=== PATIENT | female | born 1950 | race Caucasian/White ===

== ENCOUNTER 2023-11-28 15:41 | Emergency (ER) | payer OTHER ==
[2023-11-28] VITALS (8 sets, daily range): BP systolic 130; BP diastolic 45; PULSE 86–161; RESP 20–26; TEMP 98.5; O2SAT 99
[~2023-11-28] VITALS: Ht 172.7 cm; Wt 80.0 kg
[~2023-11-28 15:41] MED LIST: EPINEPHRINE 0.1MG/ML (1:10,000) 10ML SYR ONE; ETOMIDATE 2MG/ML 10ML VIAL IV ONE
[2023-11-28] MEDS: SODIUM CHLORIDE 0.9% 1,000 ML IV ONE ×2 (15:53→16:32)
[2023-11-28] MEDS: FENTANYL CITRATE/PF 50MCG/ML 2ML VIAL IV ONE (15:58)
[2023-11-28 16:00] LABS: BASOPHILS % 0.7 % (0.0-2.0); DIFFERENTIAL COMMENT 0; EOSINOPHILS % 0.4 % (0.0-5.0); HEMATOCRIT. 32.4 % (36.0-48.0); HEMOGLOBIN. 10.6 g/dL (12.0-16.0); LYMPHOCYTES % 27.4 % (20.0-50.0); MEAN CORPUSCULAR HEMOGLOBIN 30.2 pg (28.0-32.0); MEAN CORPUSCULAR HGB CONC 32.8 g/dL (31.0-37.0); MEAN CORPUSCULAR VOLUME 92.1 fL (81.0-99.0); MEAN PLATELET VOLUME 7.9 fl (7.4-10.4); MONOCYTES % 4.6 % (2.0-8.0); NEUTROPHILS % 66.9 % (40.0-76.0); PLATELET 270 x1000/uL (130-400); RED BLOOD CELL COUNT 3.52 mill/uL (4.2-5.4); RED CELL DISTRIBUTION WIDTH 14.3 % (11.6-14.6); WHITE BLOOD COUNT 16.7 x1000/uL (4.5-11.0)
[2023-11-28] MEDS ORDERED: MIDAZOLAM 100MG/100ML PMX 100 ML IV PRN (16:00)
[2023-11-28] MEDS ORDERED: MIDAZOLAM HCL 100 MG in SODIUM CHLORIDE 0.9% 100 ML IV PRN (16:00)
[2023-11-28 16:08] LABS: CHLORIDE 101 mEq/L (98-107); POTASSIUM 4.6 mEq/L (3.5-5.1); SODIUM 132 mEq/L (136-145)
[2023-11-28 16:09] LABS: CALCIUM 8.2 mg/dL (8.7-10.4); CARBON DIOXIDE 17 mEq/L (21-32)
[2023-11-28 16:14] LABS: CREATININE 1.8 mg/dL (0.6-1.0); UREA NITROGEN BLOOD 35 mg/dL (9-23)
[2023-11-28 16:15] LABS: TROPONIN I HIGH SENSITIVITY 31 ng/L (3.0-34)
[2023-11-28 16:16] LABS: AMMONIA 33 uMol/L (<32)
[2023-11-28 16:18] LABS: ETHANOL BLOOD < 10 mg/dL (<10); GLUCOSE 446 mg/dL (70-105)
[2023-11-28 16:28] LABS: CREATINE KINASE 8292 IU/L (34-145)
[2023-11-28] MEDS: NOREPINEPHRINE 8MG/250ML PMX 250 ML IV PRN (16:32)
[2023-11-28] MEDS: ATROPINE SULFATE 1MG/ML VIAL IV NR (16:32)
[2023-11-28 16:52] LABS: BG BASE EXCESS -15.3 mmol/L (-2.0-2.0); BG CARBOXYHEMOGLOBIN 0.3 % (0.5-1.5); BG FRACTION INSPIRED OXYGEN 100; BG HCO3 ACT 14.1 mmol/L (22.0-26.0); BG METHEMOGLOBIN 0.3 % (0.0-1.5); BG OXYHEMOGLOBIN 98.4 % (94.0-97.0); BG PCO2 50.4 mmHg (35.0-45.0); BG PH 7.065 (7.350-7.450); BG PO2 296.2 mmHg (75.0-100.0); BG SAMPLE SITE LEFT BRACHIAL; BG TOTAL HEMOGLOBIN 8.9 g/dL (12.0-18.0); BG TOTAL RESPIRATORY RATE 27 b/min; BG VENT MODE VENT - AC
[2023-11-28] MEDS: ROCURONIUM BROMIDE 10MG/ML VIAL 5ML IV NR (16:57)
[2023-11-28] MEDS ORDERED: PHENYLEPHRINE 50MG/250ML PMX 250 ML IV PRN (17:00)
[2023-11-28] MEDS: ETOMIDATE 2MG/ML 10ML VIAL IV NR (17:04)
[2023-11-28] MEDS: INSULIN REGULAR (HUMULIN R) 1000UNITS/10ML VIAL SUBCUT NR (18:20)
[2023-11-28] MEDS ORDERED: IPRATROPIUM/ALBUTEROL 0.5-3(2.5)MG/3ML NEB HHN PRN (18:45)
[2023-11-28] MEDS ORDERED: LACTATED RINGERS 1,000 ML IV SCH (18:45)
[2023-11-28] MEDS ORDERED: ONDANSETRON HCL 4MG/2ML INJ IV PRN (18:45)
[2023-11-28] MEDS ORDERED: DEXTROSE 50% WATER 50ML SYRINGE IV PRN (18:45)
[2023-11-28] MEDS ORDERED: MAGNESIUM/ALUMINUM HYDROXIDE/SIMETHICONE 30ML UDC PO PRN (18:45)
[2023-11-28] MEDS ORDERED: ACETAMINOPHEN 325MG TABLET PO PRN ×2 (18:45)
[2023-11-28 18:48] LABS: BG CARBOXYHEMOGLOBIN 0.3 % (0.5-1.5); BG DEOXYHEMOGLOBIN 15.4 % (0.0-5.0); BG FRACTION INSPIRED OXYGEN 80; BG HCO3 ACT 15.8 mmol/L (22.0-26.0); BG METHEMOGLOBIN 0.3 % (0.0-1.5); BG OXYGEN SATURATION 84.5 % (92.0-98.5); BG PCO2 48.4 mmHg (35.0-45.0); BG PH 7.132 (7.350-7.450); BG PO2 62.1 mmHg (75.0-100.0); BG SAMPLE SITE RIGHT RADIAL; BG TOTAL HEMOGLOBIN 11.6 g/dL (12.0-18.0); BG TOTAL RESPIRATORY RATE 20 b/min; BG VENT MODE VENT - AC
[2023-11-28 19:23] LABS: IRON 31 ug/dL (50-170)
[2023-11-28 19:26] LABS: ALANINE AMINOTRANSFERASE 237 IU/L (10-49); ALBUMIN 3.8 g/dL (3.2-4.8); ASPARTATE AMINOTRANSFERASE 442 IU/L (<34); BILIRUBIN DIRECT 0.1 mg/dL (<=3.0); BILIRUBIN TOTAL 0.2 mg/dL (0.1-1.0); PROTEIN TOTAL 6.7 g/dL (6.0-8.3); TOTAL IRON BINDING CAPACITY 311 ug/dl (250-425)
[2023-11-28] MEDS ORDERED: AZITHROMYCIN 500MG/250ML 250 ML IV SCH (19:30)
[2023-11-28 19:43] LABS: FERRITIN > 1650 ng/mL (10-291)
[2023-11-28 19:44] LABS: FOLIC ACID (FOLATE) SERUM > 20.00 ng/mL (>5.38); VITAMIN B12 SERUM 418 pg/mL (211-911)
[2023-11-28] MEDS: CEFTRIAXONE 1GM/50ML 50 ML IV SCH (20:30)
[2023-11-28] MEDS ORDERED: ENOXAPARIN 30MG/0.3ML SYR SUBCUT SCH (21:00)
[2023-11-28] MEDS ORDERED: BLOOD SUGAR DIAGNOSTIC STRIP TEST SCH (21:00)
[2023-11-28] MEDS ORDERED: PANTOPRAZOLE SODIUM 40 MG/VIAL IV SCH (21:00)
[2023-11-28] MEDS ORDERED: INSULIN LISPRO 100 UNITS/ML SUBCUT SCH (21:00)
[2023-11-28] MEDS ORDERED: INSULIN GLARGINE 100 UNITS/ML SUBCUT SCH (22:00)
== END 2023-11-28 21:41 ==
LOC: ER 15:41 → CANBEDREQ 22:13
DX: I46.9 Cardiac arrest, cause unspecified (principal); E11.9 Type 2 diabetes mellitus without complications; I11.0 Hypertensive heart disease with heart failure
CPT/HCPCS: 80076; 80048; 82010; 80320; 82140; 82550; 82607; 82728; 82746; 82962; 83036; 83540; 83550; 85025; 84484; 36415; 84145; 71045; 93970; 82805; 82375; 36556; 92950; 96361; 96365; 96375; 99291; 99292; 36600; J3010; J3490 ×6; J0696; J1815; J7030; 94003; G0480